=== PATIENT | female | born 2000 | race Caucasian/White ===

== ENCOUNTER 2023-07-03 22:02 | Observation (INO) ==
[2023-07-03] MEDS ORDERED: Lactated Ringers 1000 ml BAG 1,000 ML IV ONE (22:15)
[2023-07-03] MEDS ORDERED: Ondansetron 4 mg VIAL 2 MG/ML 2 ml VIAL IV ONE (22:15)
[2023-07-03 23:17] LABS: ABS Basophils 0.1 10^3/uL (0.0-0.1); ABS Eosinophils 0.1 10^3/uL (0.0-0.5); ABS Lymphocytes 1.8 10^3/uL (1.0-4.8); ABS Monocytes 1.5 10^3/uL (0.0-0.9); ABS Neutrophils 17.1 10^3/uL (1.5-7.6); ABS Nucleated RBC 0.01 10^3/ul; Eosinophil % 0.3 %; Hematocrit 44.7 % (35-45); Hemoglobin 15.8 g/dL (11.5-14.3); Lymphocyte % 8.6 %; Mean Corpuscular Hgb Conc 35.3 g/dL (31-36); Mean Platelet Volume 7.3 fL (7.5-11.2); Nucleated Red Blood Cells % 0.1 /100 WBC (0.0-0.4); Platelet Count 466 10^3/uL (150-450); Red Blood Count 5.25 10^6/uL (3.63-4.92); Red Cell Distribution Width 12.2 % (12-17); White Blood Count 20.5 10^3/uL (3.8-11.8)
[2023-07-03 23:18] LABS: Urine Appearance Cloudy; Urine Bilirubin Negative (Negative); Urine Blood Negative (Negative); Urine Color Amber; Urine Glucose Negative (Negative); Urine Ketones Negative (Negative); Urine Nitrite Negative (Negative); Urine Protein 1+(30 mg/dL) (Negative); Urine Specific Gravity 1.023 (1.002-1.030); Urine Urobilinogen Negative (Negative)
[2023-07-03 23:23] LABS: Urine Amorphous Crystals Present (Absent); Urine Bacteria Absent (Absent); Urine Red Blood Cell Absent (Absent); Urine Squamous Epithelial Cell Present (Absent); Urine White Blood Cell Absent (Absent)
[2023-07-03 23:31] LABS: Albumin 4.4 g/dL (3.2-5.2); CO2 Carbon Dioxide 20 mmol/L (22-32); Chloride 100 mmol/L (101-111); Magnesium 1.8 mg/dL (1.9-2.7); Sodium 136 mmol/L (135-145)
[2023-07-03 23:37] LABS: ALT 9 U/L (7-52); Albumin/Globulin Ratio 1.1 (1-3); Alkaline Phosphatase 97 U/L (35-149); Blood Urea Nitrogen 12 mg/dL (6-24); C Reactive Protein 17.29 mg/L (<8.01); Creatinine, Serum 0.95 mg/dL (0.51-0.95); Globulin 3.9 g/dL (2-4); Glucose 119 mg/dL (70-100); Lipase < 10 U/L (11.0-82.0); Total Protein 8.3 g/dL (6.4-8.9)
[2023-07-03 23:38] LABS: Anion Gap 16 mmol/L (2-16)
[2023-07-03 23:42] LABS: HCG Pregnancy < 0.60 mIU/mL
[2023-07-03] MEDS ORDERED: Iohexol 300 (CONTRAST) 10 ML SDV IV ONE (23:55)
[2023-07-04 00:16] LABS: Potassium Redraw 4.9 mmol/L (3.5-5.0)
[2023-07-04] MEDS ORDERED: Lactated Ringers 1000 ml BAG 1,000 ML IV ONE ×3 (01:47→14:23)
[2023-07-04] MEDS ORDERED: Ondansetron 4 mg VIAL 2 MG/ML 2 ml VIAL IV ONE (01:47)
[2023-07-04] MEDS ORDERED: Piperacillin/Tazobac 3.375 BAG 3.375 GM/100 ML BAG IV ONE (02:15)
[2023-07-04] MEDS ORDERED: Magnesium Sulfate 2 gm BAG 2 GM/50 ML BAG IVPB ONE (04:13)
[2023-07-04 05:06] LABS: Hematocrit 37.7 % (35-45); Hemoglobin 13.3 g/dL (11.5-14.3); Mean Corpuscular Hgb Conc 35.3 g/dL (31-36); Mean Corpuscular Volume 84.9 fL (80-97); Mean Platelet Volume 7.1 fL (7.5-11.2); Platelet Count 299 10^3/uL (150-450); Red Blood Count 4.44 10^6/uL (3.63-4.92); Red Cell Distribution Width 12.2 % (12-17); White Blood Count 11.3 10^3/uL (3.8-11.8)
[2023-07-04 05:20] LABS: Calcium 8.4 mg/dL (8.6-10.3); Creatinine, Serum 0.77 mg/dL (0.51-0.95); Magnesium 1.5 mg/dL (1.9-2.7); Potassium 3.7 mmol/L (3.5-5.0); eGFR CKD-EPI 113.2 (>60)
[2023-07-04] MEDS ORDERED: Magnesium Sulfate IV 3 GM in NS 0.9% 100 ml BAG 100 ML IVPB ONE (05:28)
[2023-07-04 07:32] LABS: ABS Lymphocytes 0.6 10^3/uL (1.0-4.8); ABS Monocytes 0.4 10^3/uL (0.0-0.9); ABS Neutrophils 10.1 10^3/uL (1.5-7.6); ABS Nucleated RBC 0.01 10^3/ul; Eosinophil % 0.2 %; Lymphocyte % 5.8 %
[2023-07-04] MEDS ORDERED: Lactated Ringers 1000 ml BAG 1,000 ML IV SCH (08:00)
[2023-07-04] MEDS: Ondansetron 4 mg VIAL 2 MG/ML 2 ml VIAL IV PRN ×2 (08:05→14:19)
[2023-07-04] MEDS ORDERED: DESOGESTREL ETHINYL ESTRADIOL PO SCH (09:00)
[2023-07-04] MEDS ORDERED: Enoxaparin 40 MG/0.4 ML SYR SUBCUT SCH (09:00)
[2023-07-04 18:05] VITALS: BP 104/66
[2023-07-06 19:22] LABS: Calprotectin 602 mcg/g
== END 2023-07-04 18:13 | disposition home or self-care (01) ==
LOC: EDHOLD 22:02 → ED 22:02 → SUATTDRO 07-04 02:47 → EDHOLD 07-04 18:03
PROVIDERS: ADMIT Internal Medicine; ATTEND Internal Medicine